=== PATIENT | female | born 1955 | race Caucasian/White ===

== ENCOUNTER → 2017-01-28 | Outpatient (CLI) | payer BC ==
--- NOTE | 2017-01-28 11:13 | Discharge Instructions ---
Discharge Instructions Procedure Procedure Date: Jan 28, 2017. Reason for visit: Thyroid Nodule. Discharge Discharge Date: Jan 28, 2017. Discharge Diagnosis: s/p left lobe thyroid nodule FNA Instructions Activity Recommendations: No limitations Return to School/Work: no limitations Recommended Home Diet: No Limitations Provider Instructions: ACTIVITY RECOMMENDATIONS: * Rest today. * Resume regular activity in one day. MEDICATIONS: * May take Tylenol or Ibuprofen as needed for pain. DIET: * Resume previous diet. SPECIAL CARE INSTRUCTIONS: Call your doctor if: * Temperature above 101 degrees F. * Pain not relieved by pain medicine ordered. * Increased drainage or redness from incision. * Notify your doctor with any questions or concerns. Call your doctor or go to the nearest Emergency Department if you experience: * Increased chest pain or shortness of breath. FOLLOW UP VISIT: Follow-up with Referring Physician as scheduled. Jarod Wheat Recommendations: Call your doctor if: * Temperature above 101 degrees * Pain not relieved by pain medicine ordered * There is increased drainage or redness from any incision * You have any unanswered questions or concerns. Your Doctors Instructions noted above were prepared by provider Gabe Tyler. Patient Signature Section: Patient Instructions Signature Page Kirstin Elmore Patient (or Guardian) Signature/Date: I have read and understand the instructions given to me by my caregivers. Caregiver/RN/Doctor Signature/Date: The above-named patient and/or guardian has received patient instructions on this date. + Original Patient Signature Page (only) stays with chart. Please make copy for patient.
--- NOTE | 2017-01-28 11:28 | DIAGNOSTIC IMAGING REPORT ---
ULTRASOUND GUIDED FINE NEEDLE ASPIRATION OF LEFT LOBE THYROID NODULE CLINICAL HISTORY: Thyroid nodule. COMPARISON STUDY: Thyroid ultrasound December 12, 2016. PROCEDURE: The procedure, risks and benefits were discussed with the patient. The patient agreed to the procedure and informed written consent was obtained. The procedure was performed by Dr. Tyler following a timeout. Sonography of the thyroid gland again demonstrated the 2.2 cm nodule within the upper pole of the left thyroid lobe. This was targeted for fine needle aspiration. Skin overlying this nodule was prepped and draped in sterile fashion and local anesthesia was achieved with 1% lidocaine. Under direct ultrasound guidance, 2 25-gauge fine needle aspirations were performed. These were deemed preliminarily adequate by pathology. IMPRESSION: Ultrasound guided fine needle aspiration of 2.2 cm left lobe thyroid nodule. Electronically signed by: Gabe Tyler M.D. 01/28/2017 11:26 AM Dictated Date/Time: 01/28/2017 11:21 AM
== END | disposition home or self-care (01) ==
LOC: C.ULTR 10:33
PROVIDERS: ATTEND Internal Medicine Endocrinology, Diabetes & Metabolism
DX: E04.2 Nontoxic multinodular goiter (principal)